=== PATIENT | male | born 1995 | race African-American/Black ===

== ENCOUNTER 2017-01-09 16:14 | Emergency (ER) | payer SELFPAY ==
[~2017-01-09] VITALS: Ht 167.6 cm; Wt 55.0 kg
[2017-01-09 16:16] VITALS: BP 130/66; PULSE 70; RESP 20; TEMP 98.6; O2SAT 100
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
[2017-01-09] MEDS ORDERED: CEPH500C PO (19:50)
[2017-01-09] MEDS ORDERED: CEPHALEXIN MONOHYDRATE 500 MG CAP PO ONE (20:00)
== END 2017-01-09 19:45 | disposition home or self-care (01) ==
LOC: NEPK 16:14
DX: S01.312A Laceration without foreign body of left ear, initial encounter (principal); Y04.2XXA Assault by strike against or bumped into by another person, initial encounter
CPT/HCPCS: 12011

== ENCOUNTER 2017-01-21 18:26 | Emergency (ER) | payer SELFPAY ==
[~2017-01-21] VITALS: Ht 167.6 cm; Wt 57.0 kg
[~2017-01-21 18:26] MED LIST: CEPH500C PO
[2017-01-21 18:27] VITALS: BP 133/70; PULSE 59; RESP 20; TEMP 97.8; O2SAT 100
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
== END 2017-01-21 19:10 | disposition home or self-care (01) ==
LOC: NEPD 18:26
DX: S01.312D Laceration without foreign body of left ear, subsequent encounter (principal); X58.XXXD Exposure to other specified factors, subsequent encounter; Z48.02 Encounter for removal of sutures
CPT/HCPCS: 99281